=== PATIENT | female | born 1975 | race African-American/Black ===

== ENCOUNTER 2016-08-07 19:30 | Emergency (ER) | payer SELFPAY ==
[~2016-08-07] VITALS: Ht 165.1 cm; Wt 75.0 kg
[~2016-08-07 19:30] MED LIST: NAPR550T3 PO
--- NOTE | 2016-08-07 19:38 | PD ---
HPI Chief Complaint: syncope Time Seen by Provider: 19:38 Travel History International Travel<30 days: No Contact w/Intl Traveler<30days: No Traveled to known affect area: No History of Present Illness HPI 41-year-old female came to the emergency room with history of syncope versus seizure. Patient started getting very lightheaded while she was at work. As per the paramedics who brought her and spoke with her colleagues said that she started to slump when she was held by one of her colleagues and gently laid on the floor. She was shaking but she kept talking through the entire thing. She never thought she really passed out. However patient does not remember some events. Vital signs upon arrival were within normal limit. Her blood sugar done by paramedics was 99. Says that she does not take any medications. She is a smoker and she did not eat any lunch today. She was out of the sun for a long time and at work she was feeling dehydrated. PFSH Past Medical History Narrative Medical List of her past medical, surgical, social and family history was reviewed from the nursing note. Social History Tobacco Use: No Allergies-Medications (Allergen,Severity, Reaction): Coded Allergies: No Known Allergies (Unverified , 08/07/16) Comments No known drug allergies. Reported Meds & Prescriptions Reported Meds & Active Scripts Active Ferrous Sulfate 325 Mg Tab 325 Mg PO DAILY Macrobid (Nitrofurantoin Monoh/Nitrofur Macro) 100 Mg Cap 100 Mg PO BID 7 Days Narrative Medication List of her home medications reviewed from the nursing note. Review of Systems Except as stated in HPI: all other systems reviewed are Neg Physical Exam Narrative GENERAL: Awake, alert but looks tired, mild distress SKIN: Focused skin assessment warm/dry. HEAD: Atraumatic. Normocephalic. EYES: Pupils equal and round. No scleral icterus. No injection or drainage. ENT: No nasal bleeding or discharge. Mucous membranes pink and moist. NECK: Trachea midline. No JVD. CARDIOVASCULAR: Regular rate and rhythm. No murmur appreciated. RESPIRATORY: No accessory muscle use. Clear to auscultation. Breath sounds equal bilaterally. GASTROINTESTINAL: Abdomen soft, non-tender, nondistended. Hepatic and splenic margins not palpable. MUSCULOSKELETAL: No obvious deformities. No clubbing. No cyanosis. No edema. NEUROLOGICAL: Awake and alert. No obvious cranial nerve deficits. Motor grossly within normal limits. Normal speech. PSYCHIATRIC: Appropriate mood and affect; insight and judgment normal. Data Data Last Documented VS Vital Signs Date Time Temp Pulse Resp B/P Pulse Ox O2 Delivery O2 Flow Rate FiO2 08/07/16 20:52 93 16 147/92 08/07/16 20:16 98 Room Air 08/07/16 19:45 98.5 Orders Electrocardiogram (08/07/16 19:50) Complete Blood Count With Diff (08/07/16 19:50) Basic Metabolic Panel (Bmp) (08/07/16 19:50) Troponin I (08/07/16 19:50) Urinalysis - C+S If Indicated (08/07/16 19:50) Ct Brain W/O Iv Contrast(Rout) (08/07/16 19:50) Ecg Monitoring (08/07/16 19:50) Iv Access Insert/Monitor (08/07/16 19:50) Oximetry (08/07/16 19:50) Sodium Chloride 0.9% Flush (Ns Flush) (08/07/16 20:00) Sodium Chlor 0.9% 1000 Ml Inj (Ns 1000 M (08/07/16 20:00) Urine Culture (08/07/16 20:14) Nitrofurantoin Monohyd Macrocr (Macrobid (08/07/16 20:45) Orthostatic Vital Signs (08/07/16 20:44) Labs Laboratory Tests Test 08/07/16 20:14 White Blood Count 7.9 TH/MM3 Red Blood Count 4.31 MIL/MM3 Hemoglobin 9.4 GM/DL Hematocrit 29.7 % Mean Corpuscular Volume 68.9 FL Mean Corpuscular Hemoglobin 21.7 PG Mean Corpuscular Hemoglobin 31.5 % Concent Red Cell Distribution Width 21.8 % Platelet Count 216 TH/MM3 Mean Platelet Volume 7.8 FL Neutrophils (%) (Auto) 73.2 % Lymphocytes (%) (Auto) 13.4 % Monocytes (%) (Auto) 11.9 % Eosinophils (%) (Auto) 0.5 % Basophils (%) (Auto) 1.0 % Neutrophils # (Auto) 5.8 TH/MM3 Lymphocytes # (Auto) 1.1 TH/MM3 Monocytes # (Auto) 0.9 TH/MM3 Eosinophils # (Auto) 0.0 TH/MM3 Basophils # (Auto) 0.1 TH/MM3 CBC Comment AUTO DIFF Differential Comment AUTO DIFF CONFIRMED Platelet Estimate NORMAL Platelet Morphology Comment NORMAL Ovalocytes 1+ Urine Color YELLOW Urine Turbidity HAZY Urine pH 6.0 Urine Specific [place] 1.008 Urine Protein NEG mg/dL Urine Glucose (UA) NEG mg/dL Urine Ketones NEG mg/dL Urine Occult Blood NEG Urine Nitrite NEG Urine Bilirubin NEG Urine Urobilinogen LESS THAN 2.0 MG/DL Urine Leukocyte Esterase SMALL Urine RBC 1 /hpf Urine WBC 8 /hpf Urine Squamous Epithelial 10 /hpf Cells Urine Bacteria RARE /hpf Urine Hyaline Casts 4 /lpf Urine Mucus FEW /lpf Microscopic Urinalysis Comment CATH-CULTURE IND Sodium Level 137 MEQ/L Potassium Level 3.7 MEQ/L Chloride Level 99 MEQ/L Carbon Dioxide Level 32.1 MEQ/L Anion Gap 6 MEQ/L Blood Urea Nitrogen 6 MG/DL Creatinine 0.76 MG/DL Estimat Glomerular Filtration 101 ML/MIN Rate Random Glucose 85 MG/DL Calcium Level 8.9 MG/DL Troponin I LESS THAN 0.02 NG/ML MDM Medical Decision Making Medical Screen Exam Complete: Yes Emergency Medical Condition: Yes Medical Record Reviewed: Yes Interpretation(s) Twelve-lead EKG was reviewed by me. Normal sinus rhythm, normal axis, nonspecific ST-T wave changes. Heart rate of 86 bpm. Differential Diagnosis Syncope, seizures, near syncope Narrative Course 8:53 PM blood test results of back and patient is mildly anemic. Chemistry is within normal limits. Head CT is within normal limits. UA was suggestive of UTI. I've given her one dose of Macrobid. I gave her 1 L of fluid bolus. I' ve asked the nurse to do orthostatic vital signs. Patient will be discharged home on prescription for UTI and iron pills. 8:57 PM orthostatic vital signs were negative for orthostatic hypotension. Procedures EKG Prior to Arrival: No Diagnosis Primary Impression: Near syncope Additional Impressions: Anemia Qualified Code: D64.9 - Anemia, unspecified type UTI (urinary tract infection) Qualified Code: N39.0 - Urinary tract infection without hematuria, site unspecified Referrals: Primary Care Physician 1 week Additional Instructions: Please return to the ER if the condition worsens or any other new concerns. You must follow-up with your primary care within a week. The medications as per the prescription direction. He should not skip meals and drink lots of fluid. Med/Other Pt SpecificInfo: Prescription(s) given Scripts Ferrous Sulfate 325 Mg [id number] Mg PO DAILY #30 TAB Ref 0 Prov:Destiny Childress MD 08/07/16 Nitrofurantoin Monohydrate Macrocrystals (Macrobid)100 Mg [id number] Mg PO BID 7 Days Ref 0 Prov:Destiny Childress MD 08/07/16 Disposition: 01 DISCHARGE HOME Condition: Stable Destiny Childress MD Aug 07, 2016 19:38
[2016-08-07 19:45] VITALS: BP 126/87; PULSE 90; RESP 18; TEMP 98.5; O2SAT 96
[2016-08-07] MEDS ORDERED: SODIUM CHLORIDE 0.9% FLUSH 10 ML FLUSH IVF PRN (20:00)
[2016-08-07] MEDS ORDERED: SODIUM CHLOR 0.9% 1000 ML INJ 1,000 ML IV ONE (20:00)
[2016-08-07 20:16] VITALS: O2SAT 98
[2016-08-07 20:25] LABS: AUTOMATED NEUTROPHIL # 5.8 TH/MM3 (1.8-7.7); BASOPHIL # 0.1 TH/MM3 (0-0.2); EOSINOPHIL % 0.5 % (0.0-4.0); HEMATOCRIT 29.7 % (35.0-46.0); LYMPH % 13.4 % (9.0-44.0); LYMPHOCYTE # 1.1 TH/MM3 (1.0-4.8); MEAN CELL VOLUME 68.9 FL (80.0-100.0); MEAN CORPUSCULAR HEMOGLOBIN 21.7 PG (27.0-34.0); MEAN CORPUSCULAR HGB CONC 31.5 % (32.0-36.0); MONO % 11.9 % (0.0-8.0); NEUT % 73.2 % (16.0-70.0); PLATELET COUNT 216 TH/MM3 (150-450); RED BLOOD COUNT 4.31 MIL/MM3 (4.00-5.30); RED CELL DISTRIBUTION WIDTH 21.8 % (11.6-17.2); WHITE BLOOD COUNT 7.9 TH/MM3 (4.0-11.0)
--- NOTE | 2016-08-07 20:31 | RADRPT ---
EXAM DATE/TIME: 08/07/2016 20:22 [facility] COMPARISON: No previous studies available for comparison. INDICATIONS : Syncope today. RADIATION DOSE: 40.53 CTDIvol (mGy) MEDICAL HISTORY : None SURGICAL HISTORY : None. ENCOUNTER: Initial ACUITY: 1 day PAIN SCALE: 0/10 LOCATION: Bilateral head TECHNIQUE: Multiple contiguous axial images were obtained of the head. Using automated exposure control and adj ustment of the mA and/or kV according to patient size, radiation dose was kept as low as reasonably a chievable to obtain optimal diagnostic quality images. FINDINGS: CEREBRUM: The ventricles are normal for age. No evidence of midline shift, mass lesion, hemorrhage or acute in farction. No extra-axial fluid collections are seen. POSTERIOR FOSSA: The cerebellum and brainstem are intact. The 4th ventricle is midline. The cerebellopontine angle i s unremarkable. EXTRACRANIAL: The visualized portion of the orbits is intact. SKULL: The calvaria is intact. No evidence of skull fracture. CONCLUSION: No acute disease. Skyler Mcgowan MD FACR on August 07, 2016 at 20:29 Board Certified Radiologist. This report was verified electronically.
[2016-08-07 20:36] LABS: BACTERIA, URINE RARE /hpf; BLOOD, URINE NEG (NEG); GLUCOSE,URINE NEG (NEG); HYALINE CAST, URINE 4 /lpf (RARE); KETONE, URINE NEG (NEG); MUCUS URINE FEW /lpf (OCC); NITRITE,URINE NEG (NEG); SQUAMOUS EPITHELIAL CELL URINE 10 /hpf (0-5); URINE COLOR YELLOW (YELLW/STRAW)
[2016-08-07 20:37] LABS: COMMENT (UR) CATH-CULTURE IND; CULTURE IF INDICATED CATH CULTURE IND
[2016-08-07 20:39] LABS: HEMO FLAGS AUTO DIFF
[2016-08-07 20:42] LABS: ANION GAP 6 MEQ/L (5-15); BICARBONATE 32.1 MEQ/L (21.0-32.0); BLOOD UREA NITROGEN 6 MG/DL (7-18); CHLORIDE 99 MEQ/L (98-107); GLOMERULAR FILTRATION RATE 101 ML/MIN (>89); POTASSIUM 3.7 MEQ/L (3.5-5.1); SODIUM (NA) 137 MEQ/L (136-145)
[2016-08-07] MEDS ORDERED: NITROFURANTOIN MONOHYD MACROCR 100 MG CAP PO ONE (20:45)
[2016-08-07 20:47] VITALS: BP 129/80; RESP 16
[2016-08-07 20:50] VITALS: BP 124/76; RESP 16
[2016-08-07 20:52] VITALS: BP 147/92; RESP 16
[2016-08-07] MEDS ORDERED: FERR325T PO (20:57)
[2016-08-07] MEDS ORDERED: MACR100C2 PO (20:57)
[2016-08-07 21:03] LABS: OVALOCYTES 1+ (NORMAL); PLATELET ESTIMATE SMEAR NORMAL (NORMAL); PLATELET MORPHOLOGY NORMAL (NORMAL); SCAN/DIFF AUTO DIFF CONFIRMED
--- NOTE | 2016-08-08 11:42 | EKG ---
Date Performed: 08/07/2016 Time Performed: 20:01:15 PTAGE: 41 years EKG: Sinus rhythm NORMAL ECG NO PREVIOUS TRACING DOCTOR: Yefri Rodriguez Interpretating Date/Time 08/08/2016 11:38:00
== END 2016-08-07 21:07 | disposition home or self-care (01) ==
LOC: NEPD 19:30
DX: R55 Syncope and collapse (principal); D64.9 Anemia, unspecified; N39.0 Urinary tract infection, site not specified; B96.89 Other specified bacterial agents as the cause of diseases classified elsewhere
CPT/HCPCS: 70450; 80048; 81001; 84484; 85025; 87086; 93005; 96360; 99284; J7030